=== PATIENT | female | born 1995 | race African-American/Black ===

== ENCOUNTER 2016-09-26 08:48 | Emergency (ER) | payer SELFPAY ==
[~2016-09-26] VITALS: Ht 165.1 cm; Wt 72.0 kg
[2016-09-26 09:20] LABS: HEMATOCRIT 41.5 % (36.0-46.0); MCH 27.7 PG (29.0-34.0); MCHC 34.2 G/DL (30.0-36.0); MCV 80.9 FL (83-99); PLATELET COUNT 267 K/uL (156-360); RBC DIS.WIDTH-CV 12.9 % (11.8-14.6); RBC DIS.WIDTH-SD 36.7 % (39-53); RED BLOOD COUNT 5.13 M/uL (3.80-5.20); WHITE BLOOD COUNT 7.5 K/uL (4.1-10.2)
[2016-09-26 09:42] LABS: QUANTITATIVE HCG < 4.0 MIU/ML
[2016-09-26 10:12] LABS: CHLORIDE 109 mEq/L (99-109); SODIUM 139 mEq/L (136-147)
[2016-09-26 10:14] LABS: GLUCOSE 106 mg/dL (70-99)
[2016-09-26 10:15] LABS: ANION GAP 12 MEQ/L (2-14)
[2016-09-26 10:16] LABS: TOTAL BILIRUBIN 0.4 mg/dL (0.0-1.0)
[2016-09-26 10:18] LABS: ALKALINE PHOSPHATASE 81 IU/L (3-129)
[2016-09-26 10:19] LABS: GFR ESTIMATE (CALCULATED) > 59 mL/min/; UREA NITROGEN (BUN) 13 mg/dL (9-23)
[2016-09-26 10:20] LABS: DIRECT BILIRUBIN 0.1 mg/dL (0.0-0.3)
[2016-09-26 10:21] LABS: LIPASE 17 U/L (1.0-51.0)
[2016-09-26 11:48] LABS: ADD MIUA? YES; BILIRUBIN NEGATIVE; BLOOD NEGATIVE; COLOR YELLOW ((YELLOW)); GLUCOSE (STRIP) NEGATIVE; KETONES 5; LEUKOCYTES NEGATIVE; NITRITE NEGATIVE; PROTEIN (STRIP) 30; SPECIFIC GRAVITY 1.038 (1.000-1.030); UROBILINOGEN 0.2 MG/DL (0.2-1.0)
[2016-09-26 12:01] LABS: BACTERIA RARE /HPF; EPITHELIAL CELLS 1+ /HPF; MUCUS TRACE /LPF; RED BLOOD CELLS 0-5 /HPF (0-5); UNCLASSIFIED CASTS 0-5 /LPF; WHITE BLOOD CELLS 0-5 /HPF (0-5)
[2016-09-26] MEDS ORDERED: ZOFRAN4 MG PO (13:02)
[2016-09-26 13:48] VITALS: BP 110/71
== END 2016-09-26 13:50 | disposition home or self-care (01) ==
LOC: EME 08:48
PROVIDERS: Emergency Medicine
DX: K52.9 Noninfective gastroenteritis and colitis, unspecified (principal)
CPT/HCPCS: 74176; 80048; 80076; 81003; 83690; 84702; 85027; 87086; 99281; 99284; J2270; J2405